=== PATIENT | male | born 1995 | race Caucasian/White ===

== ENCOUNTER 2018-04-27 02:19 | Emergency (ER) | payer OTHER ==
[~2018-04-27] VITALS: Ht 182.9 cm; Wt 97.0 kg
[2018-04-27 02:51] LABS: MEAN CORPUSCULAR HEMOGLOBIN 31.8 pg (27.5-34.5); MEAN CORPUSCULAR HGB CONC 33.9 g/dL (33.2-36.2); MEAN CORPUSCULAR VOLUME 93.9 fL (81-97); MEAN PLATELET VOLUME 8.6 fL (7.4-10.4); PLATELET COUNT 274 x10^3/uL (130-400); RED BLOOD COUNT 5.24 x10^6/uL (4.38-5.82); RED CELL DISTRIBUTION WIDTH 12.5 % (9.4-14.8)
[2018-04-27] MEDS ORDERED: LORazepam 1MG TABLET PO ONE (03:00)
[2018-04-27 03:03] LABS: ALBUMIN 4.6 g/dL (3.4-5.0); ANION GAP 12 mmol/L (5-15); CALCIUM 9.8 mg/dL (8.5-10.1); CHLORIDE 107 mmol/L (98-107); CREATININE 1.12 mg/dL (0.7-1.3)
[2018-04-27] MEDS ORDERED: LORazepam 0.5MG TABLET ONE (03:10)
[2018-04-27] MEDS ORDERED: LORazepam 1MG TABLET ONE (03:12)
[2018-04-27 03:41] LABS: MD YES
[2018-04-27 03:43] LABS: BASOS% (MANUAL) 2 % (0-1); EOS% (MANUAL) 2 % (1-7); LYMPHS% (MANUAL) 38 % (22-44); MONOS% (MANUAL) 1 % (2-9); SEGS% (MANUAL) 57 % (42-75)
[2018-04-27 03:44] LABS: <PLATELET ESTIMATE> ADEQUATE; <PLT MORPHOLOGY> NORMAL PLT MORPH; <RBC MORPHOLOGY> NORMAL
[2018-04-27] MEDS ORDERED: POTASSIUM CHLORIDE 20 MEQ TAB.ER.PRT ONE (03:58)
[2018-04-27] MEDS ORDERED: POTASSIUM CHLORIDE 20 MEQ TAB.ER.PRT PO ONE (04:00)
[2018-04-27 04:14] VITALS: BP 150/70
== END 2018-04-27 04:16 | disposition home or self-care (01) ==
LOC: ED 04:00
DX: R42 Dizziness and giddiness (principal); R11.0 Nausea; F12.10 Cannabis abuse, uncomplicated
CPT/HCPCS: 36415; 80048; 82040; 85025; 93005; 99285

== ENCOUNTER 2021-01-05 08:24 | Emergency (ER) | payer BC, OTHER ==
[~2021-01-05] VITALS: Ht 180.3 cm; Wt 92.4 kg
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
--- NOTE | 2021-01-05 09:14 | NUR ---
Pt returned from Xray. No acute changes noted.
[2021-01-05 09:57] VITALS: BP 123/78
== END 2021-01-05 10:05 | disposition home or self-care (01) ==
LOC: ED 10:04
DX: S76.011A Strain of muscle, fascia and tendon of right hip, initial encounter (principal); S66.911A Strain of unspecified muscle, fascia and tendon at wrist and hand level, right hand, initial encounter; S83.92XA Sprain of unspecified site of left knee, initial encounter; V09.9XXA Pedestrian injured in unspecified transport accident, initial encounter; Y93.89 Activity, other specified; Y92.410 Unspecified street and highway as the place of occurrence of the external cause; Y99.8 Other external cause status
CPT/HCPCS: 29505; 99284